=== PATIENT | female | born 1945 | race Caucasian/White ===

== ENCOUNTER 2016-11-02 18:09 | Emergency (ER) | payer MEDICARE ==
[~2016-11-02] VITALS: Ht 160 cm; Wt 71.0 kg
[2016-11-02 18:12] VITALS: BP 151/82; PULSE 69; RESP 16; TEMP 98.8; O2SAT 95
[2016-11-02] MEDS ORDERED: IMIT25TA PO (18:26)
[2016-11-02] MEDS ORDERED: TOPA25TA8 PO (18:26)
[2016-11-02] MEDS ORDERED: HTN MED (18:26)
[2016-11-02] MEDS ORDERED: VENL25TA PO (18:26)
[2016-11-02] MEDS ORDERED: IBUP-232 PO (18:37)
[2016-11-02] MEDS ORDERED: AUGM875T3 PO (18:37)
--- NOTE | 2016-11-02 18:42 | PD ---
HPI Chief Complaint: Bite or Sting Time Seen by Provider: 18:32 Travel History International Travel<30 days: No Contact w/Intl Traveler<30days: No Traveled to known affect area: No History of Present Illness HPI 71 year-old female who presents to emergency room with complaints of a dog bite which occurred at 4:30pm this afternoon. Reports that she was playing ball with her dogs this afternoon, reports that one of her dogs accidently bit her on the right hand. All of her dogs are immunized with rabies vaccination. Reports skin avulsion to right dorsum of hand. There is no FB in right hand. Tetanus is not up to date [facility] Past Medical History Arthritis: Yes Depression: Yes Hypertension: Yes Medical other: Yes (SINUS TROUBLE) Migraines: Yes Tetanus Vaccination: < 5 Years Influenza Vaccination: No ?: Not Past Surgical History Tonsillectomy: Yes Other Surgery: Yes (SINUS, BACK, HIP) Social History Alcohol Use: No Tobacco Use: No Substance Use: No Allergies-Medications (Allergen,Severity, Reaction): Coded Allergies: codeine (Verified Allergy, Unknown, 11/02/16) Reported Meds & Prescriptions Reported Meds & Active Scripts Active Reported [Htn Med] Effexor (Venlafaxine HCl) 25 Mg Tab Unknown Dose PO DIRECTED Topamax (Topiramate) 25 Mg Tab 25 Mg PO BID Imitrex (Sumatriptan Succinate) 25 Mg Tab 25 Mg PO ONCE PRN If a satisfactory response has not been obtained at 2 hours, a second dose may be administered Review of Systems General / Constitutional: No: Fever Eyes: No: Visual changes HENT: No: Headaches Cardiovascular: No: Chest Pain or Discomfort Respiratory: No: Shortness of Breath Gastrointestinal: No: Abdominal Pain Genitourinary: No: Dysuria Musculoskeletal: No: Pain Skin: Positive Other (dog bite to dorsum of right hand), No Rash Neurologic: No: Weakness Psychiatric: No: Depression Endocrine: No: Polydipsia Hematologic/Lymphatic: No: Easy Bruising Physical Exam Narrative GENERAL: Well-nourished, well-developed patient. SKIN: Focused skin assessment warm/dry. HEAD: Normocephalic. EYES: No scleral icterus. No injection or drainage. NECK: Supple, trachea midline. No JVD or lymphadenopathy. CARDIOVASCULAR: Regular rate and rhythm without murmurs, gallops, or rubs. RESPIRATORY: Breath sounds equal bilaterally. No accessory muscle use. GASTROINTESTINAL: Abdomen soft, non-tender, nondistended. MUSCULOSKELETAL: No cyanosis, or edema. Patient with 0.5cm avulsion to dorsum of right hand, there is no drainage, no foreign body in hand, pulses intact, neurovascularly intact LUE: normal exam BACK: Nontender without obvious deformity. No CVA tenderness. Data Data Last Documented VS Vital Signs Date Time Temp Pulse Resp B/P (MAP) Pulse Ox O2 Delivery O2 Flow Rate FiO2 11/02/16 18:12 98.8 69 16 151/82 (105) 95 Orders Orders Wound Care (11/02/16 18:35) Amoxicil-Clavulanate (Augmentin) (11/02/16 18:45) Tetanus/Diphtheria Tox Adult (Tetanus/Di (11/02/16 18:45) Ibuprofen (Motrin) (11/02/16 18:45) MDM Medical Decision Making Medical Screen Exam Complete: Yes Emergency Medical Condition: Yes Medical Record Reviewed: Yes Interpretation(s) Vital Signs Date Time Temp Pulse Resp B/P (MAP) Pulse Ox O2 Delivery O2 Flow Rate FiO2 11/02/16 18:12 98.8 69 16 151/82 (105) 95 Differential Diagnosis Dog bite Narrative Course 71 year-old female who presents to emergency room with complaints of a dog bite which occurred at 4:30pm this afternoon. Reports that she was playing ball with her dogs this afternoon, reports that one of her dogs accidently bit her on the right hand. All of her dogs are immunized with rabies vaccination. Reports skin avulsion to right dorsum of hand Patient's tetanus was updated today. Area of bite was cleaned with Betadine. Plan to start on Augmentin. Patient understands need for wound recheck in 48 hours. Signs and symptoms of when to return to the emergency room earlier was reviewed patient in detail. Diagnosis Primary Impression: Dog bite of right hand Qualified Codes: S61.451A - Open bite of right hand, initial encounter; W54.0XXA - Bitten by dog, initial encounter Patient Instructions: General Instructions Additional Instructions: Return to ER in 48 hours for re-evaluation of your wound Keep wound clean Please take all antibiotics as prescribed Return to the ER earlier if you develop fever/chills, or you notice any red streaking up your arm or and drainage from the bite site Your tetanus vaccine was updated today Med/Other Pt SpecificInfo: Prescription(s) given Scripts Ibuprofen (Ibuprofen) 600 Mg Tab 600 MG PO Q6H Y for Pain/Inflammation, #40 TAB 0 Refills Prov: Delia Khan DO 11/02/16 Amoxicillin-Clavulanate (Augmentin) 875-125 Mg Tab 1 TAB PO BID for Infection for 10 Days, #20 TAB 0 Refills Prov: Delia Khan DO 11/02/16 Disposition: 01 DISCHARGE HOME Condition: Stable Delia Khan DO Nov 02, 2016 18:42
[2016-11-02] MEDS ORDERED: IBUPROFEN 600 MG TAB PO ONE (18:45)
[2016-11-02] MEDS ORDERED: TETANUS/DIPHTHERIA TOXOID ADULT 0.5 ML VIAL IM ONE (18:45)
[2016-11-02] MEDS ORDERED: AMOXICILLIN/CLAVULANATE K 875 MG TAB PO ONE (18:45)
== END 2016-11-02 19:03 | disposition home or self-care (01) ==
LOC: PHED 18:09
DX: S61.451A Open bite of right hand, initial encounter (principal); W54.0XXA Bitten by dog, initial encounter; I10 Essential (primary) hypertension
CPT/HCPCS: 90471; 90714